=== PATIENT | male | born 1965 | race Two or more races ===

== ENCOUNTER 2024-05-18 15:04 | Emergency (ER) | payer MEDICAID, OTHER ==
[~2024-05-18] VITALS: Ht 185.4 cm; Wt 61.2 kg
[2024-05-18 16:51] VITALS: BP 165/100; PULSE 104; RESP 20; TEMP 97.8; O2SAT 97
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
[2024-05-18] MEDS: KETOROLAC TROMETH 60MG/2ML VIAL IM ONE (17:44)
[2024-05-18] MEDS ORDERED: IBUP-1456 PO (17:49)
[2024-05-18] MEDS ORDERED: METH-1182 PO (17:49)
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
== END 2024-05-18 18:04 | disposition home or self-care (01) ==
LOC: ER 15:17
DX: S39.012A Strain of muscle, fascia and tendon of lower back, initial encounter (principal); S16.1XXA Strain of muscle, fascia and tendon at neck level, initial encounter; Z79.1 Long term (current) use of non-steroidal anti-inflammatories (NSAID); Z79.899 Other long term (current) drug therapy; V43.52XA Car driver injured in collision with other type car in traffic accident, initial encounter; Y93.89 Activity, other specified; Y92.410 Unspecified street and highway as the place of occurrence of the external cause; Y99.8 Other external cause status
CPT/HCPCS: 72040; 72100; 96372; 99284; J1885